=== PATIENT | male | born 1960 | race Two or more races ===

== ENCOUNTER 2019-05-05 19:35 | Emergency (ER) | payer SELFPAY ==
[~2019-05-05] VITALS: Ht 167.6 cm; Wt 63.5 kg
--- NOTE | 2019-05-05 20:00 | NUR ---
PT COLBYSEMANUELA REQUESTING VOLUNTARY ADMISSION TO PSYCH FACILITY. PT STATES HE HAS BEEN OFF PSYCH MEDICATIONS, UNKNOWN NAME/DOSE. PT AAOX4. RESPIRATIONS EVEN AND UNLABORED. APPEARS DISHEVELED. VITAL SIGNS STABLE. SKIN WARM AND INTACT. ABLE TO AMBULATE WITH STEADY GAIT. WILL CONTINUE TO MONITOR.
--- NOTE | 2019-05-05 20:25 | NUR ---
URINE COLLECTED AND GIVEN TO LAB
--- NOTE | 2019-05-05 20:28 | NUR ---
PHLEB AT BEDSIDE FOR LAB DRAW
[2019-05-05 20:32] LABS: BASOPHILS # (AUTO) 0.1 /CMM (0.0-0.2); HEMATOCRIT 38 % (39-51); HEMOGLOBIN 12.8 g/dL (13.5-17.5); LYMPHOCYTES # (AUTO) 1.9 /CMM (0.8-4.8); LYMPHOCYTES % (AUTO) 26.6 % (20.0-44.0); MEAN CORPUSCULAR HGB CONC 34 g/dl (31.0-36.0); MEAN CORPUSCULAR VOLUME 87 fL (80-96); MONOCYTES # (AUTO) 0.5 /CMM (0.1-1.30); NEUTROPHILS # (AUTO) 4.4 /CMM (1.8-8.9); NEUTROPHILS % (AUTO) 62.4 % (43.0-81.0); PLATELET COUNT (AUTO) 412 /CMM (150-450); RED BLOOD CELL COUNT(AUTO) 4.38 MIL/uL (4.5-6.0)
[2019-05-05 20:40] LABS: CALCIUM, SERUM 9.3 mg/dL (8.5-10.1); CARBON DIOXIDE 28 mmol/L (21-32); CHLORIDE 104 mmol/L (98-107); GLUCOSE 109 mg/dL (74-106); POTASSIUM 3.7 mmol/L (3.5-5.1); SODIUM SERUM 140 mmol/L (136-145); UREA NITROGEN, BLOOD 31 mg/dL (7-18)
[2019-05-05 20:41] LABS: APPEARANCE,URINE Clear (CLEAR); BILIRUBIN,URINE SMALL (NEGATIVE); BLOOD, URINE Negative Ery/uL (NEGATIVE); COLOR,URINE Yellow (YELLOW); KETONES,URINE Negative (NEGATIVE); LEUKOCYTE ESTERASE ,URINE Negative (NEGATIVE); NITRITE, URINE Negative (NEGATIVE); PH,URINE 5.5 (5.0-8.0); PROTEIN,URINE Trace mg/dl (NEGATIVE); UGLUCOSE Negative (NEGATIVE)
[2019-05-05 20:50] LABS: ALANINE AMINOTRANSFERASE 23 U/L (12-78); ALBUMIN 3.9 g/dL (3.4-5.0); ALCOHOL, BLOOD < 3 mg/dL (0-0); ALKALINE PHOSPHATASE 72 U/L (46-116); ASPARTATE AMINOTRANSFERASE 22 U/L (15-37); BILIRUBIN,DIRECT 0.1 mg/dL (0.0-0.2); BILIRUBIN,TOTAL 0.3 mg/dL (0.2-1.0); TOTAL PROTEIN, SERUM 7.3 g/dL (6.4-8.2)
[2019-05-05 20:59] LABS: SALICYLATE 1.6 mg/dL (2.8-20.0)
[2019-05-05 21:00] LABS: ACETAMINOPHEN 0 ug/ml (10-30)
--- NOTE | 2019-05-05 21:07 | NUR ---
[facility] HELM TO [facility] [id number] TRIP [id number]
[2019-05-05 21:10] LABS: BACTERIA,URINE Few /HPF (None Seen); RBC,URINE 0-2 /HPF (0-2); SQUAMOUS EPITHELIAL CELL,UR Rare /HPF (None Seen); WBC,URINE 0-2 /HPF (0-3)
--- NOTE | 2019-05-05 22:30 | NUR ---
PER [facility], NOT ACCEPTED BY MD YET. WILL FAX OVER CLINICAL INFORMATION, PENDING ADMISSION. AMBULNZ ON STAND BY
--- NOTE | 2019-05-06 03:18 | NUR ---
PER [facility] INTAKE, NO BEDS AVAILABLE AT THIS TIME. WILL CALL BACK ONCE PATIENT IS ACCEPTED. PT RESTING COMFORTABLY IN BED. VITAL SIGNS STABLE. NO ACUTE DISTRESS NOTED AT THIS TIME. WILL CONTINUE TO MONITOR
--- NOTE | 2019-05-06 06:29 | NUR ---
PT ACCEPTED TO [facility] MD: DR. DELVALLE NUMBER FOR REPORT: [phone]
--- NOTE | 2019-05-06 06:33 | NUR ---
CALLED [facility] FOR TRANSPORATION. ETA [phone], TRIP [id number]
--- NOTE | 2019-05-06 06:54 | NUR ---
PER ADMITTING, PT DOES NOT QUALIFY FOR PRESUMPTIVE MEDICAL. INFORMED FRANCISCO FROM [facility] PT DOES NOT HAVE INSURANCE, PT UNABLE TO BE ACCEPTED TO [facility].
--- NOTE | 2019-05-06 08:23 | NUR ---
BREAKFAST TRAY PROVIDED. TOLERATING PO WELL.
[2019-05-06] MEDS ORDERED: OLANZAPINE 5 MG/TAB.RAPDIS PO ONE (08:30)
[2019-05-06] MEDS ORDERED: OLANZAPINE 5 MG TABLET ONE (08:34)
--- NOTE | 2019-05-06 08:49 | NUR ---
SANTOS and ED EMERITA Fry met with the pt. bedside along with supervisor publications Rowan Weathers. Pt. is alert and oriented x 3. Pt. is manic and unable to cooperate at this time. Rowan spoke with Dr. Watkins in regards to medicating pt. due to his manic behavior. SW to follow up and assess pt. when he is able to provide meaningful information.
--- NOTE | 2019-05-06 09:06 | NUR ---
Patient given written and verbal discharge instructions. Patient verbalizes understanding of instructions. Patient is ambulatory with steady gait. Refuses offer of group home placement. Patient given list of available shelters in surrounding area. patient in proper clothing upon discharged, name band removed. Tap card provided.
[2019-05-06 09:07] VITALS: BP 116/71
== END 2019-05-06 09:09 | disposition home or self-care (01) ==
LOC: ER 19:39
DX: F28 Other psychotic disorder not due to a substance or known physiological condition (principal); F32.9 Major depressive disorder, single episode, unspecified
CPT/HCPCS: 36415; 80048; 80076; 80305; 80307; 80329; 81001; 85025; 99284; G0480; 81000-TC